=== PATIENT | male | born 2000 | race Caucasian/White ===

== ENCOUNTER 2024-04-10 08:27 | Emergency (ER) | payer SELFPAY ==
[2024-04-10 08:34] VITALS: BP 153/78; PULSE 67
[2024-04-10] MEDS: Albuterol 0.083% 2.5 MG/3 ML Neb Soln NEB ONE (08:46)
== END 2024-04-10 09:22 | disposition home or self-care (01) ==
LOC: JP.ED 08:27
DX: J45.901 Unspecified asthma with (acute) exacerbation (principal)
CPT/HCPCS: 94640; 99284